=== PATIENT | female | born 1995 | race Caucasian/White ===

== ENCOUNTER 2022-06-08 01:22 | Inpatient (IN) | payer BC ==
[2022-06-08] MEDS ORDERED: CITRIC ACID-SODIUM CITRATE 15 ML CUP PO ONE (01:57)
--- NOTE | 2022-06-08 02:12 | P.HPOB ---
History of Present Illness H&P Date: 06/08/22 Chief Complaint: 33-6/7 weeks, twins, ruptured, labor the patient is a 27-year-old 2 para 0010 admitted at 33-6/7 weeks as established by seven-week ultrasound. 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 She has been co-managed with maternal medicine throughout her with concordant growth and no other problems to this point. She presents this evening with spontaneous rupture of membranes for clear fluid and in active labor with all signs reassuring, category 1 heart rate tracing for both twins. Presentation has been breech/breech and she is found at this time to be approximate 6 cm dilated with a breech in presentation at -2 station. She is grossly ruptured. Her has been otherwise uncomplicated and group B strep status is not yet been determined. Given her active labor, she is not stable for transfer and will be delivered here. Obstetrical history: 2 para 0010 with current statistics listed in history of present illness. EDC of 07/22/2022 was established by seven-week ultrasound. Laboratory workup demonstrates a blood type of A+ with a negative antibody screen. Rubella status is immune. The remainder of the laboratory work was within normal limits. Early Glucola was within normal limits. Second trimester Glucola was elevated but followed by a normal three- hour glucose tolerance test. Group B strep status is not yet determined. Gynecologic history: Unremarkable with no history of any infections to include STDs. Past Medical History History of Any Multi-Drug Resistant Organisms: None Reported Smoking Status: Never smoker Medications and Allergies Home Medications Medication Instructions Recorded Confirmed Type Aspirin 81 mg PO DAILY 06/08/22 06/08/22 History Vit No.179/Iron/Folic 1 tab PO DAILY 06/08/22 06/08/22 History [ Tablet] Allergies Allergy/AdvReac Type Severity Reaction Status Date / Time No Known Allergies Allergy Verified 06/08/22 01:24 Exam Intake and Output 06/07/22 06/07/22 06/08/22 14:59 22:59 06:59 Other: Weight 111.13 kg in general, this is a well-developed, well-nourished white female in no acute distress. Her heart has a regular rhythm and rate without murmur. Her lungs are clear to auscultation bilaterally in all zhou. Her abdomen is gravid, nondistended, has normal active bowel sounds, soft, nontender, without any palpable masses aside from uterine fundus. Her extremities without any cyanosis, clubbing, or edema and are nontender to palpation bilaterally. Digital cervical examination demonstrates her cervix to approximate 6 cm dilated, 80% effaced, with a breech in presentation at -2 station. Rupture of membranes is confirmed both grossly and with amnisure. Assessment and Plan (1) with 33 completed weeks gestation Current Visit: Yes Status: Acute Code(s): Z3A.33 - 33 WEEKS GESTATION OF SNOMED Code(s): 93656218 (2) Twin Current Visit: Yes Status: Acute Code(s): Z37.9 - OUTCOME OF DELIVERY, UNSPECIFIED SNOMED Code(s): 47997583 (3) Spontaneous rupture of membranes Current Visit: Yes Status: Acute Code(s): NXR8142 - SNOMED Code(s): 879253694 (4) labor Current Visit: Yes Status: Acute Code(s): O60.00 - LABOR WITHOUT DELIVERY, UNSPECIFIED TRIMESTER SNOMED Code(s): 9578010 (5) Breech presentation Current Visit: Yes Status: Acute Code(s): O32.1XX0 - MATERNAL CARE FOR B REECH PRESENTATION, UNSP SNOMED Code(s): 0445837 Plan: the patient is admitted for primary low-transverse section. This has been planned throughout the given the presentation of the twins as breech/breech. She has been co-managed with maternal medicine but cannot be transferred as she is in active labor. Will be delivered here and the 's dispositioned thereafter per pediatric protocol. Risks and, occasions the procedure have been discussed and she has understood and agreed to proceed.
[2022-06-08] MEDS ORDERED: HYDROmorphone (PF) 1 MG/ML ONE (02:27)
[2022-06-08] MEDS ORDERED: ePHEDrine 50 MG/ML 1 ML VIAL ONE (02:27)
[2022-06-08] MEDS ORDERED: MORPHINE SULFATE (PF) 0.3 MG/0.3 ML SYR ONE (02:27)
[2022-06-08] MEDS ORDERED: ONDANSETRON 4 MG/2 ML VIAL ONE (02:27)
[2022-06-08] MEDS ORDERED: SUCCINYLCHOLINE CHLORIDE 200 MG/10 ML VIAL IV ONE (02:27)
[2022-06-08] MEDS ORDERED: fentaNYL (PF) 50 MCG/ML 2 ML AMP ONE (02:27)
[2022-06-08] MEDS ORDERED: OXYTOCIN 30 UNITS/500 ML NS BAG IV ONE (02:27)
[2022-06-08] MEDS ORDERED: PROPOFOL 10 MG/ML 20 ML VIAL IV ONE (02:27)
[2022-06-08] MEDS ORDERED: KETOROLAC 15 MG/ML 1 ML VIAL ONE (02:27)
[2022-06-08 02:45] LABS: Anisocytosis Slight; Basophils % (A) 1 %; Eosinophils % (A) 0 %; HCT 31.4 % (34.0-46.0); HGB 9.3 gm/dL (11.4-16.0); Hypochromasia Marked; Lymphocytes # (A) 1.5 k/uL (1.0-4.8); Lymphocytes % (A) 30 %; MCH 21.1 pg (25.0-35.0); MCHC 29.8 g/dL (31.0-37.0); MCV 70.7 fL (80.0-100.0); Mean Platelet Volume 9.2; Microcytosis Moderate; Monocytes # (A) 0.2 k/uL (0-1.0); Monocytes % (A) 4 %; Neutrophils # (A) 3.3 k/uL (1.3-7.7); Neutrophils % (A) 63 %; Platelet Count 243 k/uL (150-450); Poikilocytosis Moderate; RBC 4.44 m/uL (3.80-5.40); RDW 16.5 % (11.5-15.5); WBC 5.2 k/uL (3.8-10.6)
[2022-06-08] MEDS ORDERED: ZOLPIDEM 5 MG TAB PO PRN (03:24)
[2022-06-08] MEDS ORDERED: LANOLIN CREAM 5 GM TUBE TOPICAL PRN (03:24)
[2022-06-08] MEDS ORDERED: diphenhydrAMINE 25 MG CAP PO PRN (03:24)
[2022-06-08] MEDS ORDERED: diphenhydrAMINE 50 MG CAP PO PRN (03:24)
[2022-06-08] MEDS ORDERED: ONDANSETRON 4 MG/2 ML VIAL IVP PRN (03:24)
[2022-06-08] MEDS ORDERED: SIMETHICONE 80 MG CHEWABLE PO PRN (03:24)
[2022-06-08] MEDS ORDERED: diphenhydrAMINE 50 MG/ML 1 ML VIAL IVP PRN ×2 (03:24)
[2022-06-08] MEDS ORDERED: NALOXONE 0.4 MG/ML 1 ML VIAL IV PRN (03:24)
[2022-06-08] MEDS ORDERED: METOCLOPRAMIDE 5 MG/ML 2 ML VIAL IVP PRN (03:24)
[2022-06-08] MEDS: LACTATED RINGERS 1,000 ML IV SCH ×2 (03:25→15:48)
[2022-06-08] MEDS ORDERED: OXYTOCIN 30 UNITS/500 ML NS 30 UNIT in SALINE 1 500ML.BAG IV SCH (03:30)
--- NOTE | 2022-06-08 03:35 | P.OP ---
Date of Procedure: 06/08/22 Preoperative Diagnosis: #1. 33-6/7 weeks, twin intrauterine #2. spontaneous rupture of membranes #3. labor #4. Breech/breech presentation Postoperative Diagnosis: same Procedure(s) Performed: #1. Primary low-transverse section Anesthesia: EULA Surgeon: Germain Rivera Beer Maker #1: David Coto Estimated Blood Loss (ml): 300 IV fluids (ml): 300 Urine output (ml): 300 Pathology: other (placentas) Condition: stable Disposition: floor Operative Findings: see dictated H&P for findings leading to delivery in our institution. The patient was taken to the operating room where she was delivered of a viable twin A 3 lbs. 11 oz. baby girl with Apgars of 8 at 1 minute and 9 at 5 minutes delivered in the harriet breech presentation. Twin B was delivered as a viable baby girl weighing 4 lbs. 0 oz. with Apgars of 7 and 1 minute and 8 at 5 minutes delivered in the double footling breech presentation. the placentas were delivered manually intact and grossly normal with a grossly normal three-vessel cords. The uterus was didelphic in nature though there was no appreciable septum inside the uterus. Otherwise the tubes and ovaries were normal to inspection. Description of Procedure: the patient was prepped and draped in usual fashion after spinal anesthesia was administered by the anesthesiologist. The spinal never developed a level adequate for surgery and the patient then had general endotracheal anesthesia placed. At that time a Pfannenstiel incision was made and extended into the abdominal cavity without difficulty. The bladder peritoneum was noted to be significantly distal to the intended site of incision was left intact. A 2 cm incision was made in the transverse plane of the lower uterine segment to enter the uterus at which time clear fluid was again noted. The incision was further opened bluntly. The first infant was noted to be in harriet breech presentation and the 's breech was delivered up and through the incision and the remainder of the delivered onto the field with standard breech maneuvers. The cord was doubly clamped, cut, and the passed resuscitative measures with weight and Apgars as noted above. The amniotic sac for twin B was intact and was ruptured with the feet presenting. Breech extraction was then carried out using standard breech maneuvers without difficulty. 's cord was doubly clamped, cut, and the infant passed for resuscitative measures with weight and Apgars as noted above. The placentas were delivered manually and intact as noted above. Uterus was exteriorized and the interior cavity of the uterus swept of any remaining placental or membranous fragments. The margins of the uterine incision were grasped with Fu clamps and the incision closed in 2 layers. The first layer was a running locking stitch of 0 chromic catgut followed by a running imbricating stitch of 0 chromic catgut, each from margin to margin. Hemostasis appeared to be excellent. The posterior cul-de-sac was suctioned with a guard followed by laparotomy sponge. The uterine and ovarian findings are as noted above with a slightly didelphic uterus though there was no appreciable septum within the cavity. The uterus was replaced within the abdominal cavity and the gutters swept of any remaining blood, fluid, or clot. There was some ongoing bleeding at the left angle incision which was made hemostatic with 2 [id number] stitches of 0 chromic catgut. Hemostasis then appeared to be excellent with any small bleeders cauterized with the Bovie. Once hemostasis was achieved, the parietal peritoneum was loosely reapproximated in the layer of muscles examined and found to be hemostatic. The fascia was closed with 2 running stitches of 0 Vicryl proceeding from the lateral margins to the midpoint. The subcutaneous tissues were irrigated, made hemostatic with the Bovie, and reapproximated with a running stitch of 30 plain catgut. The skin was reapproximated with a running subcuticular stitch of 4-0 Vicryl followed by half-inch Steri-Strips placed with Mastisol. Estimated blood loss for the case was approximately 300 mL. There were no complications. All sponge, instrument, needle counts were correct. The patient tolerated the procedure well and proceeded to the recovery room in stable condition. Both mother and infants are resting comfortably in recovery though both infants are in special care nursery unlikely to be transferred to a tertiary care institution given her gestational age.
[2022-06-08] MEDS: ACETAMINOPHEN TAB 500 MG TAB PO SCH ×3 (06:37→18:32)
[2022-06-08] MEDS: SENNOSIDES-DOCUSATE SODIUM 1 EACH TAB PO SCH ×2 (08:43→21:09)
[2022-06-08] MEDS: IBUPROFEN 600 MG TAB PO SCH ×3 (09:37→21:35)
[2022-06-08] MEDS: KETOROLAC 15 MG/ML 1 ML VIAL IVP PRN ×2 (09:37→15:25)
[2022-06-09] MEDS: ACETAMINOPHEN TAB 500 MG TAB PO SCH (00:16)
[2022-06-09 00:44] VITALS: RESP 16
[2022-06-09] MEDS: IBUPROFEN 600 MG TAB PO SCH (06:12)
--- NOTE | 2022-06-09 07:01 | P.PN ---
Progress Note - Text Date: 06/09/2022 Time: 06:28 The patient is status post section Vital signs stable VAS: 0-10 Patient has no complaints of pain. The patient incurred some minimal itching yesterday, this itching is now subsiding. Pain meds to be managed by service.
[2022-06-09 07:52] VITALS: BP 127/81; PULSE 72; TEMP 97.7
--- NOTE | 2022-06-09 08:29 | P.DS ---
Providers Date of admission: 06/08/22 02:04 Expected date of discharge: 06/09/22 Attending physician: Germain Rivera Primary care physician: Stated None - Discharge Diagnosis(es) (1) with 33 completed weeks gestation Current Visit: Yes Status: Acute (2) Twin Current Visit: Yes Status: Acute (3) Spontaneous rupture of membranes Current Visit: Yes Status: Acute (4) labor Current Visit: Yes Status: Acute (5) Breech presentation Current Visit: Yes Status: Acute Hospital Course: the patient is a 27-year-old 2 para 0010 admitted at 33-6/7 weeks by good dating parameters. She has a known twin intrauterine in a septate uterus and which both pregnancies or in the right horn. She's been co- managed with maternal medicine throughout the and has had no other concerns to this point. She presents with spontaneous rupture of membranes for clear fluid and is found to be in early active labor with all signs reassuring for both fetuses, category 1 heart tracings. Given relatively advanced dilation and labor, the decision was made to deliver her here. She was taken the operating room where she was delivered by primary low transverse section of a viable twin A baby girl weighing 3 lbs. 11 oz. with Apgars of 8 at 1 minute and 9 at 5 minutes. This was followed by delivery of a viable twin B baby girl weighing 4 lbs. 0 oz. with Apgars of 7 at 1 minute and 8 at 5 minutes. Her and postoperative course was unremarkable with vital signs being stable and her temperature was afebrile throughout. She was deemed stable for discharge on day #1 as she delivered very early on day of surgery. Additionally the decision to discharge was made secondary to the fact that her 's were transferred to [facility] secondary to prematurity. She therefore was discharged home to follow-up in the office in 2 weeks for an incision check and 6 weeks routinely. Discharge instructions included calling for any significantly increased bleeding or foul-smelling lochia, significantly increased fever or abdominal pain, perineal complaints, breast complaints, incisional complaints, or anything also concerned her. She was additionally instructed to have nothing in the vagina for at least 6 weeks time to include intercourse and to do no heavy lifting over the same period of time. She was last instructed to do no driving until off of all pain medications or 2 weeks' time, whichever came first. She understood her instructions and agrees follow up as noted above. Discharge medications included continued vitamins as she intends to breast-feed. She additionally was provided with a prescription for Tylenol 3, 1-2 by mouth every 6 hours when necessary pain, #20 dispensed with no refills. Maternal blood type is A+ and rubella status is immune. Postoperative hemoglobin and hematocrit are pending at the time of this dictation. Procedures: #1. Primary low-transverse section Patient Condition at Discharge: Stable Plan - Discharge Summary New Discharge Prescriptions: No Action Vit No.179/Iron/Folic [ Tablet] 1 tab PO DAILY Aspirin 81 mg PO DAILY Discharge Medication List Aspirin 81 mg PO DAILY 06/08/22 [History] Vit No.179/Iron/Folic [ Tablet] 1 tab PO DAILY 06/08/22 [History] Follow up Appointment(s)/Referral(s): Germain Rivera MD [STAFF PHYSICIAN] - 2 Weeks Discharge Disposition: HOME SELF-CARE
[2022-06-09 08:53] LABS: Anisocytosis Slight; Basophils # (A) 0.1 k/uL (0-0.2); Basophils % (A) 1 %; Eosinophils % (A) 0 %; HCT 30.7 % (34.0-46.0); HGB 8.8 gm/dL (11.4-16.0); Hypochromasia Marked; Lymphocytes # (A) 2.1 k/uL (1.0-4.8); Lymphocytes % (A) 23 %; MCH 20.6 pg (25.0-35.0); MCHC 28.7 g/dL (31.0-37.0); MCV 71.9 fL (80.0-100.0); Mean Platelet Volume 8.8; Microcytosis Moderate; Monocytes # (A) 0.3 k/uL (0-1.0); Monocytes % (A) 3 %; Neutrophils # (A) 6.6 k/uL (1.3-7.7); Neutrophils % (A) 72 %; Platelet Count 269 k/uL (150-450); Poikilocytosis Slight; RBC 4.27 m/uL (3.80-5.40); RDW 16.8 % (11.5-15.5); WBC 9.2 k/uL (3.8-10.6)
== END 2022-06-09 10:10 | disposition home or self-care (01) | DRG 786 ==
LOC: FBPOP 01:22 → 4FBP 02:04
PROVIDERS: ADMIT Obstetrics & Gynecology; ATTEND Obstetrics & Gynecology
PROC: 4A0HXCZ Measurement of Products of Conception, Cardiac Rate, External Approach (ICD-10-PCS; 2022-06-08)
PROC: 10D00Z1 Extraction of Products of Conception, Low, Open Approach (ICD-10-PCS; principal; 2022-06-08 02:30)
DX: O32.8XX0 Maternal care for other malpresentation of fetus, not applicable or unspecified (principal); O60.14X0 Preterm labor third trimester with preterm delivery third trimester, not applicable or unspecified; O34.03 Maternal care for unspecified congenital malformation of uterus, third trimester; O99.73 Diseases of the skin and subcutaneous tissue complicating the puerperium; L29.9 Pruritus, unspecified; O30.003 Twin pregnancy, unspecified number of placenta and unspecified number of amniotic sacs, third trimester; Q51.28 Other and unspecified doubling of uterus; Z37.2 Twins, both liveborn; Z3A.33 33 weeks gestation of pregnancy; Z79.82 Long term (current) use of aspirin
CPT/HCPCS: 59025; 84112; 85025; 86850; 86900; 86901; 99213

== ENCOUNTER 2023-07-03 02:14 | Inpatient (IN) | payer BC ==
[2023-07-03] MEDS ORDERED: TERBUTALINE 1 MG/ML VIAL SQ PRN (03:16)
[2023-07-03] MEDS ORDERED: miSOPROStoL 200 MCG TAB PO PRN (03:16)
[2023-07-03] MEDS ORDERED: OXYTOCIN 10 UNIT/ML 1 ML VIAL IM PRN (03:16)
[2023-07-03] MEDS ORDERED: METHYLERGONOVINE 0.2 MG/ML 1 ML AMP IM PRN (03:16)
[2023-07-03] MEDS ORDERED: CARBOPROST TROMETHAMINE 250 MCG/ML 1 ML AMP IM PRN (03:16)
[2023-07-03] MEDS ORDERED: LIDOCAINE 0.5% (PF) 5 MG/ML (50 ML SDV) SQ PRN (03:16)
[2023-07-03] MEDS ORDERED: TRANEXAMIC 1,000 MG/100ML-NACL 1,000 MG in EMPTY BAG 1 BAG IV PRN (03:16)
[2023-07-03] MEDS ORDERED: CITRIC ACID-SODIUM CITRATE 15 ML CUP PO ONE (03:17)
[2023-07-03] MEDS ORDERED: OXYTOCIN 30 UNITS/500 ML NS 30 UNIT in SALINE 1 500ML.BAG IV SCH (03:30)
[2023-07-03] MEDS: LACTATED RINGERS 1,000 ML IV SCH ×4 (03:33→18:41)
[2023-07-03 05:31] LABS: Anisocytosis Slight; Basophils % (A) 0 %; Eosinophils % (A) 1 %; HCT 32.8 % (34.0-46.0); HGB 10.5 gm/dL (11.4-16.0); Hypochromasia Moderate; Lymphocytes # (A) 2.3 k/uL (1.0-4.8); Lymphocytes % (A) 26 %; MCH 24.3 pg (25.0-35.0); MCHC 31.9 g/dL (31.0-37.0); MCV 76.1 fL (80.0-100.0); Mean Platelet Volume 7.6; Microcytosis Slight; Monocytes # (A) 0.3 k/uL (0-1.0); Monocytes % (A) 4 %; Neutrophils % (A) 68 %; Platelet Count 336 k/uL (150-450); RBC 4.31 m/uL (3.80-5.40); WBC 8.8 k/uL (3.8-10.6)
[2023-07-03] MEDS ORDERED: MORPHINE SULFATE (PF) 0.3 MG/0.3 ML SYR ONE (06:31)
[2023-07-03] MEDS ORDERED: ONDANSETRON 4 MG/2 ML VIAL ONE (06:31)
[2023-07-03] MEDS ORDERED: PHENYLEPHRINE-0.9% NACL SYG 1,000 MCG/10 ML SYRINGE ONE (06:31)
[2023-07-03] MEDS ORDERED: KETOROLAC 30 MG/ML 1 ML VIAL ONE (06:31)
[2023-07-03] MEDS ORDERED: NALBUPHINE 10 MG/ML (10 ML MDV) ONE (06:31)
--- NOTE | 2023-07-03 07:23 | P.HPOB ---
History of Present Illness H&P Date: 07/03/23 Chief Complaint: Rupture of membranes at 38-3/7 28 year old 3 para 0112 woman who has an estimated due date of 07/15/2023 based on LMP consistent with first trimester ultrasound. She presents having had spontaneous rupture of membranes at approximately 2 AM. Her obstetric history is significant for previous low transverse section for twins at 33 weeks in 2021. This has also been breech on recent imaging. She has a known septate uterus with the to the left side. This planning a repeat section with bilateral salpingectomy. Upon initial evaluation in labor and delivery triage spontaneous rupture of membranes is confirmed. She was 3 cm dilated and breech by exam. Very irregular contractions and category 1 heart tones. Obstetric history: Low transverse section in 2021 for 33 week twins. Spontaneous miscarriage 2020 in the first trimester. Laboratory data: Blood type A positive, antibody screen negative, rubella immune, VDRL nonreactive, hepatitis B surface antigen negative, HIV negative, gonorrhea and clinic cultures negative, glucose tolerance testing within normal limits, group B strep negative. Past medical history: Asthma, and T HFR gene mutation, septate uterus next para past surgical history appendectomy, wisdom teeth removal, section. Next family history noncontributory Review of Systems All systems: negative Past Medical History Past Medical History: Asthma Additional Past Medical History / Comment(s): MTHFR mutation History of Any Multi-Drug Resistant Organisms: None Reported Past Surgical History: Appendectomy, Section Additional Past Surgical History / Comment(s): [place] teeth Past Anesthesia/Blood Transfusion Reactions: No Reported Reaction Past Psychological History: No Psychological Hx Reported Smoking Status: Never smoker Past Alcohol Use History: None Reported Past Drug Use History: None Reported - Past Family History Father Family Medical History: No Reported History Mother Family Medical History: Coronary Artery Disease (CAD), Hyperlipidemia Additional Family Medical History / Comment(s): Heart stents x2 Medications and Allergies Home Medications Medication Instructions Recorded Confirmed Type Vit No.179/Iron/Folic 1 tab PO DAILY 06/08/22 07/03/23 History [ Tablet] Allergies Allergy/AdvReac Type Severity Reaction Status Date / Time No Known Allergies Allergy Verified 06/08/22 01:24 Exam Vital Signs Temp Pulse Resp BP Pulse Ox 07/03/23 02:59 96.8 F L 75 16 119/76 98 07/03/23 02:19 96.8 F L 75 16 119/76 98 Intake and Output 07/02/23 07/03/23 07/03/23 22:59 06:59 14:59 Other: Weight 108.862 kg Per RN exam on patient is 3 cm dilated breech presentation. Confirmed by bedside ultrasound. heart tones category 1. Irregular contractions. Results Result Diagrams: 07/03/23 05:12 Abnormal Lab Results - Last 24 Hours (Table) 07/03/23 Range/Units 05:12 Hgb 10.5 L (11.4-16.0) gm/dL Hct 32.8 L (34.0-46.0) % MCV 76.1 L (80.0-100.0) fL MCH 24.3 L (25.0-35.0) pg RDW 16.0 H (11.5-15.5) % Assessment and Plan (1) Septate uterus Current Visit: Yes Status: Acute Code(s): Q51.28 - OTHER AND UNSPECIFIED DOUBLING OF UTERUS SNOMED Code(s): 47763596 (2) Breech presentation Current Visit: No Status: Acute Code(s): O32.1XX0 - MATERNAL CARE FOR BREECH PRESENTATION, UNSP SNOMED Code(s): 5582814 (3) S/P section Current Visit: No Status: Acute Code(s): Z98.891 - HISTORY OF UTERINE SCAR FROM PREVIOUS SURGERY SNOMED Code(s): 391046075 (4) Spontaneous rupture of membranes Current Visit: No Status: Acute Code(s): DEG4427 - SNOMED Code(s): 326896848 Plan: 28 year old 3 para 0112 woman presenting at 38-3/7 weeks gestation with spontaneous rupture of membranes, breech presentation and history of previous low transverse section. She states that she discussed options for contraception and she and Dr. Chapis Ramirez determined that bilateral salpingectomy would be performed in the event of repeat . I did discuss with her the nonreversible nature of this procedure and it may slightly increased risk of bleeding. Postoperative intraoperative complication. The patient states she understands this and the consent form is amended to reflect repeat low transverse section with bilateral salpingectomy. Time with Patient: Greater than 30
--- NOTE | 2023-07-03 07:28 | P.OP ---
Date of Procedure: 07/03/23 Preoperative Diagnosis: Spontaneous rupture of membranes at 38-3/7 weeks gestation Breech presentation History of previous low transverse section Desires definitive sterility Septate uterus Postoperative Diagnosis: Same Plus nuchal cord 2 Procedure(s) Performed: Repeat low transverse section with bilateral salpingectomy Anesthesia: spinal Surgeon: Kristen Gonzalez Coil Finisher #1: David Coto Estimated Blood Loss (ml): 400 IV fluids (ml): 600 Urine output (ml): 100 Pathology: none sent Condition: stable Disposition: floor Indications for Procedure: Spontaneous rupture of membranes at 38-3/7 weeks gestation, breech presentation, history of previous low transverse section, request for permanent sterility. Operative Findings: Male in a compound breech presentation with nuchal cord 2. Septate uterus with on the left side. Normal-appearing bilateral fallopian tubes and ovaries. Apgars of 8 at 1 minute and 9 at 5 minutes weighing 7 lbs. 4 oz., 3290 g. Description of Procedure: After the patient was met preoperatively and all questions were answered, she was taken to the operating room where spinal anesthetic was administered without incident. She was then positioned, prepped and draped in the dorsal supine position with a leftward tilt. Wick catheter was placed. After anesthetic was confirmed adequate, a low transverse skin incision was made following the pre- existing scar. This was carried down to the underlying fascia both sharply and with the electrocautery. The fascia was then incised in the midline and extended bilaterally with the Hendrickson scissors. The superior aspect of the fascial incision was elevated and the underlying rectus muscles dissected off sharply and with the electrocautery. The inferior aspect of the fascial incision was also elevated and the underlying rectus muscles dissected off sharply. The muscles were adherent in the midline. These were bluntly and the peritoneum was tented up with hemostats. The peritoneum was entered sharply with the Metzenbaum scissors. The peritoneal incision was extended inferiorly and superiorly with good visualization of the bladder. The bladder blade was placed. The vesicouterine peritoneum was identified, tented up and entered sharply, the bladder flap was created both sharply and digitally. A low transverse uterine incision was then made sharply and carried down to the underlying amniotic membranes. Membranes were ruptured and clear fluid was noted. The uterine incision was extended bilaterally bluntly. The was noted to be a compound breech presentation with the right foot in complete breech and left leg in harriet breech. The hips were delivered through the incision and the left leg was reduced. The was then delivered to the level of the scapula where the arms were delivered with rotation. Head was flexed and head was delivered. Nuchal cord 2 was reduced. Nose and mouth were bulb suctioned. It was clamped And cut and the was taken to the warmer. An intact, three-vessel cord placenta was then manually removed and the uterus was exteriorized. The uterus was cleared of all clot and debris. The uterine incision was delineated with Fu clamps. The uterine incision was then closed in a running locked fashion with 0 Vicryl suture. Additional [id number]-pu-nyaeu sutures were placed where necessary along the incision for hemostasis. The right and left fallopian tubes were positively identified and carried out to the fimbriated ends. LigaSure device was then utilized to sequentially cauterized and cut the mesosalpinx from the level of the fimbriated end to the cornua bilaterally. Hemostasis was noted. Both tubes were passed off as surgical specimen. The uterus was then returned to the abdomen and the gutters were cleared of all clot and debris. The uterine incision was reinspected and Bovie electrocautery was utilized were necessary for hemostasis. The fascial edges, peritoneal edges and rectus muscles were inspected and Bovie electrocautery utilized were necessary for hemostasis. The fascia was then closed in a running fashion with 0 Vicryl suture. The subcuticular tissue was copiously suction irrigated and Bovie electrocautery utilized were necessary for hemostasis. 3-0 Vicryl suture was utilized to reapproximate the subcuticular tissue. The skin was then closed sing hilda. All counts reported to me as correct by the operating room staff at the end of the procedure. The patient received antibiotics preoperatively and Pitocin following cord clamp. Mother and infant were both transported from the room in stable condition.
[2023-07-03] MEDS ORDERED: diphenhydrAMINE 25 MG CAP PO PRN (07:46)
[2023-07-03] MEDS ORDERED: ZOLPIDEM 5 MG TAB PO PRN (07:46)
[2023-07-03] MEDS ORDERED: diphenhydrAMINE 50 MG CAP PO PRN (07:46)
[2023-07-03] MEDS ORDERED: diphenhydrAMINE 50 MG/ML 1 ML VIAL IVP PRN ×2 (07:46)
[2023-07-03] MEDS ORDERED: NALOXONE 0.4 MG/ML 1 ML VIAL IV PRN (07:46)
[2023-07-03] MEDS ORDERED: METOCLOPRAMIDE 5 MG/ML 2 ML VIAL IVP PRN (07:46)
[2023-07-03] MEDS ORDERED: HYDROmorphone 0.5 MG/0.5 ML SYRINGE IVP PRN (07:46)
[2023-07-03] MEDS ORDERED: ONDANSETRON 4 MG/2 ML VIAL IVP PRN (07:46)
[2023-07-03] MEDS: SENNOSIDES-DOCUSATE SODIUM 1 EACH TAB PO SCH ×2 (08:13→21:24)
[2023-07-03] MEDS: ACETAMINOPHEN TAB 500 MG TAB PO SCH ×3 (09:41→21:24)
[2023-07-03] MEDS: IBUPROFEN 600 MG TAB PO SCH ×2 (12:23→18:45)
[2023-07-03] MEDS: KETOROLAC 15 MG/ML 1 ML VIAL IVP SCH (18:41)
[2023-07-04] MEDS: IBUPROFEN 600 MG TAB PO SCH ×4 (00:21→20:20)
[2023-07-04] MEDS: KETOROLAC 15 MG/ML 1 ML VIAL IVP SCH ×2 (01:03→12:56)
[2023-07-04] MEDS: LACTATED RINGERS 1,000 ML IV SCH (01:04)
[2023-07-04] MEDS: ACETAMINOPHEN TAB 500 MG TAB PO SCH ×4 (04:15→23:35)
[2023-07-04 06:41] LABS: Basophils % (A) 0 %; Eosinophils % (A) 1 %; Hypochromasia Marked; Lymphocytes # (A) 2.4 k/uL (1.0-4.8); Lymphocytes % (A) 33 %; MCH 23.9 pg (25.0-35.0); MCV 77.1 fL (80.0-100.0); Mean Platelet Volume 7.5; Microcytosis Slight; Monocytes # (A) 0.3 k/uL (0-1.0); Monocytes % (A) 4 %; Neutrophils # (A) 4.3 k/uL (1.3-7.7); Neutrophils % (A) 60 %; Platelet Count 221 k/uL (150-450); RBC 3.76 m/uL (3.80-5.40); WBC 7.2 k/uL (3.8-10.6)
--- NOTE | 2023-07-04 07:56 | P.PN ---
Progress Note - Text 07/04/22 721am 28-year-old female status post with a spinal Duramorph. Patient seen and evaluated for postop pain control, she has a VAS of 0 with no complains of nausea vomiting or pruritus
[2023-07-04] MEDS: SENNOSIDES-DOCUSATE SODIUM 1 EACH TAB PO SCH ×2 (09:12→20:21)
--- NOTE | 2023-07-04 11:09 | P.PNOBGPC ---
Subjective - Subjective Patient reports: Reports appetite normal, Reports voiding normally, Reports pain well controlled, Reports ambulating normally [facility]: doing well Objective - Vital Signs Latest vital signs: Vital Signs Temp Pulse Resp BP Pulse Ox 07/04/23 08:00 97.9 F 62 15 117/68 97 07/04/23 04:00 97.9 F 64 16 112/58 07/03/23 20:00 97.9 F 61 16 117/70 07/03/23 12:00 98.1 F 71 18 121/60 96 Intake and Output 07/03/23 07/04/23 07/04/23 22:59 06:59 14:59 Output Total 400 400 Balance -400 -400 Output: Urine 400 400 Uretheral (Wick) 200 Other: # Voids 1 - Exam Extremities: Present: normal Abdomen: Present: normal appearance, soft. Absent: distention, tenderness Incision: Present: normal, dry, intact Uterus: Present: normal, firm (Fundus is tonic and minimally tender below the umbilicus.) - Labs Labs: Abnormal Lab Results - Last 24 Hours (Table) 07/04/23 Range/Units 06:21 RBC 3.76 L (3.80-5.40) m/uL Hgb 9.0 L D (11.4-16.0) gm/dL Hct 29.0 L (34.0-46.0) % MCV 77.1 L (80.0-100.0) fL MCH 23.9 L (25.0-35.0) pg RDW 16.0 H (11.5-15.5) % Assessment and Plan (1) S/P section Current Visit: No Status: Acute Code(s): Z98.891 - HISTORY OF UTERINE SCAR FROM PREVIOUS SURGERY SNOMED Code(s): 004614225 Plan: Continue routine and postoperative care. I have encouraged the patient is always routinely. I would anticipate discharge home tomorrow pending no complications.
[2023-07-04 23:53] VITALS: RESP 16
[2023-07-05] MEDS: IBUPROFEN 600 MG TAB PO SCH (03:15)
[2023-07-05] MEDS: SENNOSIDES-DOCUSATE SODIUM 1 EACH TAB PO SCH (08:18)
[2023-07-05] MEDS: ACETAMINOPHEN TAB 500 MG TAB PO SCH (08:18)
--- NOTE | 2023-07-05 08:30 | P.DS ---
Providers Date of admission: 07/03/23 02:47 Expected date of discharge: 07/05/23 Attending physician: Germain Rivera Primary care physician: Stated None - Discharge Diagnosis(es) (1) S/P section Current Visit: No Status: Acute Hospital Course: The patient is a 28-year-old 3 para 0112 admitted at 38-3/7 weeks with spontaneous rupture of membranes. She has a history of a previous 33 week section and has requested repeat with tubal ligation. As a result, she was taken the operating room where she underwent a repeat low transverse section with bilateral salpingectomy. She was delivered of a viable 7 lbs. 4 oz. baby boy with Apgars of 8 at 1 minute and 9 at 5 minutes. Her and postoperative courses were unremarkable with vital signs being stable and her temperature was afebrile throughout. She was deemed stable for discharge on and postoperative day #2 to follow-up in the office in 2 weeks for an incision check and 6 weeks routinely. Discharge instructions included calling for any significantly increased bleeding or foul-smelling lochia, significantly increased fever or abdominal pain, perineal complaints, breast complaints, incisional complaints, or anything else that concerned her. She is additionally instructed to have nothing in the vagina for at least 6 weeks time to include intercourse and to abstain from any heavy lifting over the same period of time. She is last instructed to do no driving until off of all pain medications or 2 weeks' time, whichever came first. Maternal blood type is A+ and rubella status is immune. Discharge medications included only normal home medications plus [id number] analgesic pain medications. Discharge hemoglobin and hematocrit were 9.0 and 29.0 respectively. As a result, she was instructed to take iron sulfate 1-2 times daily for a month to recoup her hemoglobin. Procedures: #1. Repeat low transverse section #2. Intraoperative bilateral salpingectomy Patient Condition at Discharge: Stable Plan - Discharge Summary New Discharge Prescriptions: No Action Vit No.179/Iron/Folic [ Tablet] 1 tab PO DAILY Discharge Medication List Vit No.179/Iron/Folic [ Tablet] 1 tab PO DAILY 06/08/22 [History] Follow up Appointment(s)/Referral(s): Germain Rivera MD [STAFF PHYSICIAN] - 2 Weeks Discharge Disposition: HOME SELF-CARE
[2023-07-05 09:08] VITALS: BP 125/81; PULSE 69; TEMP 97.9
== END 2023-07-05 12:30 | disposition home or self-care (01) | DRG 785 ==
LOC: FBPOP 02:14 → 4FBP 02:47
PROVIDERS: ADMIT Obstetrics & Gynecology; ATTEND Obstetrics & Gynecology
PROC: 10D00Z1 Extraction of Products of Conception, Low, Open Approach (ICD-10-PCS; principal; 2023-07-03 06:30)
PROC: 0UB70ZZ Excision of Bilateral Fallopian Tubes, Open Approach (ICD-10-PCS; principal; 2023-07-03 06:30)
DX: O34.211 Maternal care for low transverse scar from previous cesarean delivery (principal); O34.03 Maternal care for unspecified congenital malformation of uterus, third trimester; O69.81X0 Labor and delivery complicated by cord around neck, without compression, not applicable or unspecified; O99.52 Diseases of the respiratory system complicating childbirth; J45.909 Unspecified asthma, uncomplicated; O32.1XX0 Maternal care for breech presentation, not applicable or unspecified; Q51.28 Other and unspecified doubling of uterus; Z30.2 Encounter for sterilization; Z37.0 Single live birth; Z3A.38 38 weeks gestation of pregnancy; Z28.310 Unvaccinated for COVID-19
CPT/HCPCS: 59025; 84112; 85025; 86850; 86900; 86901; 88302; 99213